=== PATIENT | male | born 1955 | race Two or more races ===

== ENCOUNTER 2020-06-08 17:45 | Inpatient (IN) | payer OTHER ==
--- NOTE | 2020-06-08 20:23 | HP ---
COWS - Scale Resting Pulse: 1= CT 81-100 Sweatin=Flushed/Facial Moisture Restless Observation: 1= Difficult to Sit Still Pupil Size: 0= Normal to Room Light Bone or Joint Aches: 4=Acute Joint/Muscle Pain Runny Nose/ Eye Tearin= None GI Upset > 30mins: 2= Nausea/Diarrhea Tremor Observation: 0= None Yawning Observation: 0= None Anxiety or Irritability: 2=Irritable/Anxious Goose Flesh Skin: 0=Smooth Skin COWS Score: 12 CIWA Score Nausea/Vomitin-Mild Nausea/No Vomiting Muscle Tremors: None Anxiety: 4-Mod. Anxious/Guarded Agitation: 4-Moderately Restless Paroxysmal Sweats: 3 Orientation: 0-Oriented Tacttile Disturbances: 3-Moderate Itch/Numb/Burn (itching) Auditory Disturbances: 0-None Visual Disturbances: 0-None Headache: 3-Moderate (7/10) CIWA-Ar Total Score: 18 - Admission Criteria [facility] Guidelines: Admission for Medically Managed Detox: Requires at least one of the followin. CIWA greater than 12 2. Seizures within the past 24 hours 3. Delirium tremens within the past 24 hours 4. Hallucinations within the past 24 hours 5. Acute intervention needed for co occurring medical disorder 6. Acute intervention needed for co occurring psychiatric disorder 7. Severe withdrawal that cannot be handled at a lower level of care (continued vomiting, continued diarrhea, abnormal vital signs) requiring intravenous medication and/or fluids 8. Admission [facility] Chief Complaint: c/o withdrawal sx's. seeking alcohol and heroin detox. Allergies/Adverse Reactions: Allergies Allergy/AdvReac Type Severity Reaction Status Date / Time No Known Allergies Allergy Verified 06/08/20 22:42 History of Present Illness: here for alcohol heroin detox. client presents today with c/o withdrawal sx's. this is his first admission here. referred by [facility]. he reports daily alcohol intake and heroin abuse q 3 days. last use 2 days agop. client utox is negative for opi. discussed sx's will be managed with clonidine and librium. client agrees to plan and would like to proceed with admission. 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 denies any clean time in the past year. longest clean time 7 years in the 90's. homeless, unemployed, denies legals Exam Limitations: No Limitations - Ebola screening Have you traveled outside of the country in the last 21 days: No Have you had contact with anyone from an Ebola affected area: No Have you been sick,other than usual withdrawal symptoms: No Do you have a fever: No - Review of Systems Constitutional: Chills, Malaise, Night Sweats, Changes in sleep EENT: reports: Dental Problems (missing teeth) Respiratory: reports: Shortness of Breath, Wheezing, Other (hx/o asthma) Cardiac: reports: No Symptoms Reported GI: reports: Nausea, Poor Appetite, Poor Fluid Intake : reports: No Symptoms Reported Musculoskeletal: reports: Back Pain, Joint Pain, Neck Pain Integumentary: reports: Sweating Neuro: reports: Headache Endocrine: reports: No Symptoms Reported Hematology: reports: Anemia Psychiatric: reports: Orientated x3, Anxious Other Systems: Reviewed and Negative Patient History - Patient Medical History Hx Anemia: Yes Hx Asthma: Yes Hx Chronic Obstructive Pulmonary Disease (COPD): No Hx Cancer: No Hx Cardiac Disorders: Yes (wpw) Hx Congestive Heart Failure: No Hx Hypertension: No Hx Hypercholesterolemia: No Hx Pacemaker: No HX Cerebrovascular Accident: No Hx Seizures: No Hx Dementia: No Hx Diabetes: No Hx Gastrointestinal Disorders: No Hx Liver Disease: No Hx Genitourinary Disorders: No Hx Sexually Transmitted Disorders: No Hx Renal Disease (ESRD): No Hx Thyroid Disease: No Hx Human Immunodeficiency Virus (HIV): No Hx Hepatitis C: No Hx Depression: No Hx Suicide Attempt: No Hx Bipolar Disorder: Yes (no meds) Hx Schizophrenia: No Other Medical History: denies - Patient Surgical History Past Surgical History: Yes Hx Appendectomy: Yes Anesthesia Reaction: No - PPD History Previous Implant?: Yes Documented Results: Negative w/o proof Implanted On Prior [facility] Admission?: No PPD to be Administered?: Yes - Smoking Cessation Smoking history: Current every day smoker Have you smoked in the past 12 months: Yes Aproximately how many cigarettes per day: 10 Hx Chewing Tobacco Use: No Initiated information on smoking cessation: Yes 'Breaking Loose' booklet given: 06/08/20 - Substance & Tx. History Hx Alcohol Use: Yes Hx Substance Use: Yes Substance Use Type: Alcohol, Cocaine, Heroin Hx Substance Use Treatment: Yes ([facility]) - Substances abused Heroin Substance route: Inhalation Frequency: 3-6 times per week Amount used: 1 bag Age of first use: 33 Date of last use: 06/05/20 Alcohol Other (specify): vodka/rum Substance route: Oral Frequency: Daily Amount used: 1-2 pint Age of first use: 33 Date of last use: 06/07/20 Cocaine Substance route: Smoking (sniff) Frequency: Daily Amount used: 100 dollars Age of first use: 28 Date of last use: 06/07/20 Admission Physical Exam [facility] - Physical General Appearance: Yes: Moderate Distress, Obese, Sweating, Anxious, Other (solied, unkept) HEENTM: Yes: EOMI, Normocephalic, Normal Voice, BUBBA, Pharynx Normal, Other (missing teeth) Respiratory: Yes: Rhonchi, Wheezing Neck: Yes: No masses,lesions,Nodules, Supple, Trachea in good position Breast: Yes: Breasts Symetrical Cardiology: Yes: Regular Rhythm, S1, S2, Tachycardia Abdominal: Yes: Normal Bowel Sounds, Non Tender, Protuberent Genitourinary: Yes: Within Normal Limits Back: Yes: Normal Inspection Musculoskeletal: Yes: full range of Motion, Gait Steady Extremities: Yes: Normal Range of Motion, Non-Tender, Tremors (felt) Neurological: Yes: Fully Oriented, Alert, Motor Strength 5/5 Integumentary: Yes: Dry, Warm Lymphatic: Yes: Within Normal Limits - Diagnostic (1) Alcohol dependence with withdrawal, uncomplicated Current Visit: Yes Status: Acute (2) Asthma Current Visit: Yes Status: Chronic Qualifiers: Asthma severity: mild Asthma complication type: uncomplicated (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 (4) Substance induced mood disorder Current Visit: Yes Status: Suspected (5) Obesity Current Visit: Yes Status: Chronic (6) Heroin abuse Current Visit: Yes Status: Suspected Comment: reported by patient (7) Cannabis dependence, uncomplicated Current Visit: Yes Status: Acute Cleared for Admission [facility] - Detox or Rehab [facility] Level of Care: Medically Managed Detox Regimen/Protocol: Clonidine/Valium Claeared for Rehab Admission: No Urine Drug Screen - Control Is test valid?: Yes - Results Drug screen NEGATIVE: No Urine drug screen results: THC-Marijuana, RAYMOND-Cocaine Inpatient Rehab Admission - Rehab Decision to Admit Inpatient rehab admission?: No
[2020-06-08] MEDS ORDERED: IBUPROFEN 400 MG TABLET (FP) PO PRN (20:34)
[2020-06-08] MEDS ORDERED: chlordiazePOXIDE HCL 25 MG CAPSULE PO PRN (20:34)
[2020-06-08] MEDS ORDERED: guaiFENesin 200 MG/10 ML 10 ML UNIT-DOSE CUPS PO PRN (20:34)
[2020-06-08] MEDS ORDERED: MENTHOL/PHENOL 1 EACH UD MM PRN (20:34)
[2020-06-08] MEDS ORDERED: MAGNESIUM CITRATE 300 ML BOTTLE PO PRN (20:34)
[2020-06-08] MEDS ORDERED: METHOCARBAMOL 500 MG TABLET PO PRN (20:34)
[2020-06-08] MEDS ORDERED: MAG HYDROX/AL HYDROX/SIMETH 30 ML UNIT-DOSE CUP PO PRN (20:34)
[2020-06-08] MEDS ORDERED: ACETAMINOPHEN 325 MG TABLET (FP) PO PRN ×2 (20:34)
[2020-06-08] MEDS ORDERED: ONDANSETRON *ODT* 4 MG TABLET SL PRN (20:34)
[2020-06-08] MEDS ORDERED: NICOTINE POLACRILEX 2 MG GUM BUC PRN (20:34)
[2020-06-08] MEDS ORDERED: BISMUTH SUBSALICYLATE 524 MG/30 ML UD PO PRN (20:34)
[2020-06-08] MEDS ORDERED: MAGNESIUM HYDROX 2400MG/30ML ORAL SUSPENSION 30 ML CUP PO PRN (20:34)
[2020-06-08] MEDS ORDERED: DICYCLOMINE HCL 10 MG CAPSULE PO PRN (20:34)
[2020-06-08] MEDS ORDERED: P-EPHED 60MG/TRIPROLIDI 2.5MG TABLET PO PRN (20:34)
[2020-06-08 22:38] VITALS: BMI 33.7
[2020-06-08] MEDS ORDERED: ALBUTEROL SO4 0.083% IH SOL 2.5 MG/3 ML VIAL.NEB. NEB PRN (22:51)
[2020-06-08] MEDS ORDERED: cloNIDine HCL 0.1 MG TABLET PO PRN (22:59)
[2020-06-08] MEDS ORDERED: ALBUTEROL SO4 0.083% IH SOL 2.5 MG/3 ML VIAL.NEB. NEB ONE (23:00)
[2020-06-08] MEDS: MELATONIN 5 MG TABLETS PO SCH (23:15)
[2020-06-08] MEDS: THIAMINE HCL 100 MG TABLET (FP) PO SCH (23:15)
[2020-06-08] MEDS: chlordiazePOXIDE HCL 25 MG CAPSULE PO SCH (23:15)
[2020-06-09] MEDS: chlordiazePOXIDE HCL 25 MG CAPSULE PO SCH ×4 (06:59→23:25)
--- NOTE | 2020-06-09 09:49 | PN ---
[facility] CIWA - CIWA Score Nausea/Vomitin-No Nausea/No Vomiting Muscle Tremors: None Anxiety: 0-No Anxiety, at Ease Agitation: 0-Normal Activity Paroxysmal Sweats: No Perspiration Orientation: 1-Uncertain about Date Tacttile Disturbances: 0-None Auditory Disturbances: 0-None Visual Disturbances: 2-Mild Sensitivity Headache: 0-None Present CIWA-Ar Total Score: 3 BHS Progress Note (SOAP) Subjective: Patient examined in the room. Patient feels well other than sensitivity to light. Patient eating well. Patient had no further complaints. Objective: 06/09/20 09:45 General: Patient alert and in no acute distress, WNWD Mental status: Patient judgment intact, no anxiety/depression MSK/Neuro: Patient MS 5/5 Gait: Patient ambulates properly, gait steady Assessment: 06/09/20 09:46 1. Patient detox from alcohol, on librium taper protocol 06/09/20 09:46 Last Vital Signs Temp Pulse Resp BP Pulse Ox 97.1 F L 72 18 108/67 99 06/09/20 08:38 06/09/20 08:38 06/09/20 08:38 06/09/20 08:38 06/09/20 08:38 Current Medications Generic Name Dose Route Start Last Admin Trade Name Freq PRN Reason Stop Dose Admin Acetaminophen 650 mg 06/08/20 20:34 Tylenol - PO Q6H PRN PAIN LEVEL 4 - 6 Acetaminophen 650 mg 06/08/20 20:34 Tylenol - PO Q6H PRN FEVER Al Hydroxide/Mg Hydroxide 30 ml 06/08/20 20:34 Mylanta Oral Suspension - PO Q6H PRN DYSPEPSIA Albuterol Sulfate 1 amp 06/08/20 22:51 Ventolin 0.083% Nebulizer Soln - NEB Q4H PRN SHORT OF BREATH/WHEEZING Bismuth Subsalicylate 524 mg 06/08/20 20:34 Pepto-Bismol - PO Q1H PRN DIARRHEA Chlordiazepoxide HCl 50 mg 06/08/20 23:00 06/09/20 06:59 Librium - PO 06/09/20 23:01 Not Given [id number] DOUGLAS Chlordiazepoxide HCl 25 mg 06/10/20 05:00 Librium - PO 06/10/20 23:01 [id number] DOUGLAS Chlordiazepoxide HCl 25 mg 06/08/20 20:34 Librium - PO 06/10/20 23:59 Q4H PRN WITHDRAWAL(CONT SUBST) Chlordiazepoxide HCl 10 mg 06/11/20 05:00 Librium - PO 06/11/20 23:01 [id number] DOUGLAS Chlordiazepoxide HCl 10 mg 06/12/20 05:00 Librium - PO 06/12/20 17:01 Q12H DOUGLAS Chlordiazepoxide HCl 10 mg 06/11/20 00:00 Librium - PO 06/12/20 00:00 Q4H PRN WITHDRAWAL(CONT SUBST) Chlordiazepoxide HCl 10 mg 06/13/20 05:00 Librium - PO 06/13/20 05:01 ONCE@0500 ONE Clonidine 0.1 mg 06/08/20 22:59 Catapres - PO Q6H PRN opiate withdrawal sx's Dicyclomine HCl 10 mg 06/08/20 20:34 Bentyl - PO 06/14/20 20:36 Q6H PRN Abdominal Cramping Eucalyptus/Menthol/Phenol/Sorbitol 1 each 06/08/20 20:34 Cepastat Lozenge - MM 06/14/20 20:35 Q4H PRN SORE THROAT Guaifenesin 10 ml 06/08/20 20:34 Robitussin - PO Q6H PRN COUGH Hydroxyzine Pamoate 25 mg 06/08/20 20:34 Vistaril - PO 06/14/20 20:36 Q4HWA PRN ANXIETY Ibuprofen 400 mg 06/08/20 20:34 Motrin - PO Q6H PRN PAIN LEVEL 1 - 3 Magnesium Citrate 300 ml 06/08/20 20:34 Citroma - PO Q48H PRN CONSTIPATION Magnesium Hydroxide 30 ml 06/08/20 20:34 Milk Of Magnesia - PO PRN PRN CONSTIPATION Melatonin 5 mg 06/08/20 22:00 06/08/20 23:15 Melatonin PO 5 mg HS DOUGLAS Administration Methocarbamol 500 mg 06/08/20 20:34 Robaxin - PO 06/14/20 20:35 Q6H PRN MUSCLE SPASMS Nicotine 14 mg 06/09/20 10:00 Nicoderm Patch - TD DAILY DOUGLAS Nicotine Polacrilex 2 mg 06/08/20 20:34 Nicorette Gum - BUC Q2H PRN NICOTINE REPLACEMENT RX Ondansetron HCl 4 mg 06/08/20 20:34 Zofran Odt - SL 06/14/20 20:37 Q12H PRN Nausea/Vomiting Multivit/Folic Acid/Iron 1 tab 06/09/20 10:00 Vitamins ([facility]) - PO DAILY DOUGLAS Pseudoephedrine/Triprolidine 1 combo 06/08/20 20:34 Actifed - PO Q6H PRN NASAL CONGESTION Thiamine HCl 100 mg 06/08/20 22:00 06/08/20 23:15 Vitamin B1 - PO 100 mg HS DOUGLAS Administration Discontinued Medications Generic Name Dose Route Start Last Admin Trade Name Freq PRN Reason Stop Dose Admin Albuterol Sulfate 1 amp 06/08/20 23:00 06/08/20 23:23 Ventolin 0.083% Nebulizer Soln - NEB 06/08/20 23:01 Not Given ONCE ONE Tuberculin PPD 5 units 06/08/20 23:00 06/08/20 23:22 Tubersol ([facility] Only) 5ml Vial ID 06/08/20 23:01 5 tu ONCE ONE Administration Plan: 1. Patient continued on librium taper for management of alcohol abuse.
[2020-06-09] MEDS: PRENATAL VITAMINS W/ FOLIC ACID TABLET (FP) PO SCH (10:50)
[2020-06-09] MEDS: NICOTINE 14 MG/24 HOURS TOPICAL PATCH TD SCH (10:51)
--- NOTE | 2020-06-09 10:56 | EKG ---
Test Reason : Blood Pressure : / mmHG Vent. Rate : 082 BPM Atrial Rate : 082 BPM P-R Int : 142 ms QRS Dur : 090 ms QT Int : 370 ms P-R-T Axes : 080 047 045 degrees QTc Int : 432 ms NORMAL SINUS RHYTHM NORMAL ECG NO PREVIOUS ECGS AVAILABLE Confirmed by ELI WALTERS MD ([id number]) on 06/09/2020 10:55:53 AM Referred By: Josh Schmidt Confirmed By:ELI WALTERS MD
--- NOTE | 2020-06-09 11:55 | CONSULT ---
[facility] Psychiatric Consult - Data Date of interview: 06/09/20 Admission source: [facility] Identifying data: Patient is a 64 year old black male, without children, unemployed, homless, and is supported with SSI benefits. This is patient's first admission to detox at [facility]. Patient admitted to for alcohol and cocaine dependence. Substance Abuse History: Smoking Cessation. Smoking history: Current every day smoker. Have you smoked in the past 12 months: Yes. Aproximately how many cigarettes per day: 10. Hx Chewing Tobacco Use: No. Initiated information on smoking cessation: Yes. 'Breaking Loose' booklet given: 06/08/20. - Substance & Tx. History. Hx Alcohol Use: Yes. Hx Substance Use: Yes. Substance Use Type: Alcohol, Cocaine, Heroin. Hx Substance Use Treatment: Yes ([facility]). - Substances abused. Heroin. Substance route: Inhalation. Frequency: 3-6 times per week. Amount used: 1 bag. Age of first use: 33. Date of last use: 06/05/20. Alcohol. Other (specify): vodka/rum. Substance route: Oral. Frequency: Daily. Amount used: 1-2 pint. Age of first use: 33. Date of last use: 06/07/20. Cocaine. Substance route: Smoking (sniff). Frequency: Daily. Amount used: 100 dollars. Age of first use: 28. Date of last use: 06/07/20 Medical History: Anemia, hypertension Psychiatric History: Patient's first psychiatric contact occured in 1976 due to mood instability. He was admitted to [facility], diagnosed with Bipolar disorder and treated with psychotropic medications. Mr. De Guzman reports additional hospitalizations at [facility], [facility], and most recently three months ago at [place] due to depressed mood. Patient unable to recall medications prescribed. States that he is not currently provided with outpatient psychiatric care and is not accepting psychotropic medications. Patient reports history of being prescribed risperdal + Seroquel. No reported history of suicide attempt. At present patient reports poor sleep. Physical/Sexual Abuse/Trauma History: denies. Mental Status Exam - Mental Status Exam Alert and Oriented to: Time, Place, Person Cognitive Function: Good Patient Appearance: Well Groomed Mood: Euthymic Affect: Mood Congruent Patient Behavior: Appropriate, Cooperative Speech Pattern: Appropriate Voice Loudness: Normal Thought Process: Goal Oriented Thought Disorder: Not Present Hallucinations: Denies Suicidal Ideation: Denies Homicidal Ideation: Denies Insight/Judgement: Poor Sleep: Poorly Appetite: Fair Muscle strength/Tone: Normal Gait/Station: Normal Psychiatric Findings - Problem List ([place] 1, 2,3) (1) History of bipolar disorder Current Visit: No Status: Chronic (2) Alcohol dependence with withdrawal, uncomplicated Current Visit: Yes Status: Acute (3) Cannabis dependence, uncomplicated Current Visit: Yes Status: Acute - Initial Treatment Plan Initial Treatment Plan: Psychoeducation provided. Detoxification in progress. Will order Seroquel 50mg HS (patient's request). Benefits and side effects discussed. Verbal consent given.
[2020-06-09 12:32] LABS: HEMATOCRIT 34.9 % (35.4-49); HEMOGLOBIN 11.3 GM/dL (11.7-16.9); MCH 29.2 pg (25.7-33.7); MCHC 32.5 g/dl (32.0-35.9); MEAN CELL VOLUME 89.8 fl (80-96); MEAN PLT VOLUME 7.9 fl (7.5-11.1); PLATELET COUNT 417 K/MM3 (134-434); RBC 3.88 M/mm3 (4.00-5.60); RDW 14.7 % (11.9-15.9); WHITE BLOOD COUNT 7.2 K/mm3 (4.0-10.0)
[2020-06-09 12:47] LABS: BLOOD UREA NITROGEN 19.5 mg/dL (7-18); CALCIUM 8.7 mg/dL (8.5-10.1); POTASSIUM 4.3 mmol/L (3.5-5.1)
[2020-06-09 12:50] LABS: BILIRUBIN,TOTAL 0.5 mg/dL (0.2-1); CREATININE 0.9 mg/dL (0.55-1.3); TOT PROT 6.5 g/dl (6.4-8.2)
[2020-06-09] MEDS: QUEtiapine FUMARATE 50 MG TABLET PO SCH (23:25)
[2020-06-09] MEDS: THIAMINE HCL 100 MG TABLET (FP) PO SCH (23:25)
[2020-06-09] MEDS: MELATONIN 5 MG TABLETS PO SCH (23:25)
[2020-06-10] MEDS: chlordiazePOXIDE HCL 25 MG CAPSULE PO SCH ×4 (06:14→23:02)
--- NOTE | 2020-06-10 10:44 | PN ---
S CIWA - CIWA Score Nausea/Vomitin-No Nausea/No Vomiting Muscle Tremors: 2 Anxiety: 2 Agitation: 0-Normal Activity Paroxysmal Sweats: 2 Orientation: 0-Oriented Tacttile Disturbances: 0-None Auditory Disturbances: 0-None Visual Disturbances: 0-None Headache: 2-Mild CIWA-Ar Total Score: 8 BHS Progress Note (SOAP) Subjective: c/o headache, anxiety, sweats, and shakes. Objective: 06/10/20 10:43 Vital Signs 06/10/20 06/10/20 06:33 09:37 Temperature 98.0 F 97.3 F L Pulse Rate 68 73 Respiratory 18 18 Rate Blood Pressure 145/75 101/60 O2 Sat by Pulse 96 96 Oximetry (%) Laboratory Last Values WBC 7.2 K/mm3 (4.0-10.0) 06/09/20 08:40 RBC 3.88 M/mm3 (4.00-5.60) L 06/09/20 08:40 Hgb 11.3 GM/dL (11.7-16.9) L 06/09/20 08:40 Hct 34.9 % (35.4-49) L 06/09/20 08:40 MCV 89.8 fl (80-96) 06/09/20 08:40 MCH 29.2 pg (25.7-33.7) 06/09/20 08:40 MCHC 32.5 g/dl (32.0-35.9) 06/09/20 08:40 RDW 14.7 % (11.9-15.9) 06/09/20 08:40 Plt Count 417 K/MM3 (134-434) 06/09/20 08:40 MPV 7.9 fl (7.5-11.1) 06/09/20 08:40 Sodium 142 mmol/L (136-145) 06/09/20 08:40 Potassium 4.3 mmol/L (3.5-5.1) 06/09/20 08:40 Chloride 108 mmol/L (98-107) H 06/09/20 08:40 Carbon Dioxide 28 mmol/L (21-32) 06/09/20 08:40 Anion Gap 6 MMOL/L (8-16) L 06/09/20 08:40 BUN 19.5 mg/dL (7-18) H 06/09/20 08:40 Creatinine 0.9 mg/dL (0.55-1.3) 06/09/20 08:40 Est GFR (CKD-EPI)AfAm 104.98 06/09/20 08:40 Est GFR (CKD-EPI)NonAf 90.58 06/09/20 08:40 Random Glucose 111 mg/dL (74-106) H 06/09/20 08:40 Calcium 8.7 mg/dL (8.5-10.1) 06/09/20 08:40 Total Bilirubin 0.5 mg/dL (0.2-1) 06/09/20 08:40 AST 16 U/L (15-37) 06/09/20 08:40 ALT 21 U/L (13-61) 06/09/20 08:40 Alkaline Phosphatase 70 U/L (45-117) 06/09/20 08:40 Total Protein 6.5 g/dl (6.4-8.2) 06/09/20 08:40 Albumin 3.0 g/dl (3.4-5.0) L 06/09/20 08:40 Syphilis Serology Non-reactive (NONREACTIVE) 06/09/20 08:40 Labs noted. Assessment: 06/10/20 10:43 AOX3, in no acute respiratory distress. Full ROM, ambulating in the unit. Withdrawal symptoms. Plan: continue detox.
[2020-06-10] MEDS: PRENATAL VITAMINS W/ FOLIC ACID TABLET (FP) PO SCH (10:51)
[2020-06-10] MEDS: NICOTINE 14 MG/24 HOURS TOPICAL PATCH TD SCH (10:52)
[2020-06-10] MEDS: hydrOXYzine PAMOATE 25 MG CAPSULE (FP) PO PRN ×2 (18:55→23:02)
[2020-06-10] MEDS: THIAMINE HCL 100 MG TABLET (FP) PO SCH (23:02)
[2020-06-10] MEDS: QUEtiapine FUMARATE 50 MG TABLET PO SCH (23:02)
[2020-06-10] MEDS: MELATONIN 5 MG TABLETS PO SCH (23:03)
[2020-06-11] MEDS ORDERED: chlordiazePOXIDE HCL 10 MG CAPSULE PO PRN
[2020-06-11] MEDS: chlordiazePOXIDE HCL 10 MG CAPSULE PO SCH ×4 (06:44→22:23)
[2020-06-11] MEDS: NICOTINE 14 MG/24 HOURS TOPICAL PATCH TD SCH (10:56)
[2020-06-11] MEDS: PRENATAL VITAMINS W/ FOLIC ACID TABLET (FP) PO SCH (10:56)
--- NOTE | 2020-06-11 12:17 | PN ---
S CIWA - CIWA Score Nausea/Vomitin-Mild Nausea/No Vomiting Muscle Tremors: 1-None Visible, but [place] Anxiety: 2 Agitation: 0-Normal Activity Paroxysmal Sweats: No Perspiration Orientation: 0-Oriented Tacttile Disturbances: 0-None Auditory Disturbances: 0-None Visual Disturbances: 2-Mild Sensitivity Headache: 0-None Present CIWA-Ar Total Score: 6 BHS Progress Note (SOAP) Subjective: 64 years old male was admitted on 06/08/20 for alcohol withdrawal sx management treating with librium detox regiment ate breakfast in room tolerated food well seen by psychiatrist christina wilcox discussing aftercare with staff mr concepcion Roca for his alcohol abuse treatment Objective: 06/11/20 12:19 Vital Signs - 24 hr 06/10/20 06/10/20 06/10/20 13:00 16:50 21:08 Temperature 96.5 F L 97.1 F L 97.3 F L Pulse Rate 102 H 67 82 Respiratory 18 18 18 Rate Blood Pressure 117/62 119/68 114/67 O2 Sat by Pulse 96 96 98 Oximetry (%) 06/11/20 06/11/20 06:22 08:40 Temperature 97.7 F 98.3 F Pulse Rate 71 67 Respiratory 18 16 Rate Blood Pressure 123/69 103/56 L O2 Sat by Pulse 96 96 Oximetry (%) Laboratory Tests 06/08/20 06/09/20 06/09/20 10:41 08:40 08:40 WBC 7.2 RBC 3.88 L Hgb 11.3 L Hct 34.9 L MCV 89.8 MCH 29.2 MCHC 32.5 RDW 14.7 Plt Count 417 MPV 7.9 Sodium Potassium Chloride Carbon Dioxide Anion Gap BUN Creatinine Est GFR (CKD-EPI)AfAm Est GFR (CKD-EPI)NonAf Random Glucose Calcium Total Bilirubin AST ALT Alkaline Phosphatase Total Protein Albumin Syphilis Serology Non-reactive COVID-19 (VERONICA) Not detected 06/09/20 08:40 WBC RBC Hgb Hct MCV MCH MCHC RDW Plt Count MPV Sodium 142 Potassium 4.3 Chloride 108 H Carbon Dioxide 28 Anion Gap 6 L BUN 19.5 H Creatinine 0.9 Est GFR (CKD-EPI)AfAm 104.98 Est GFR (CKD-EPI)NonAf 90.58 Random Glucose 111 H Calcium 8.7 Total Bilirubin 0.5 AST 16 ALT 21 Alkaline Phosphatase 70 Total Protein 6.5 Albumin 3.0 L Syphilis Serology COVID-19 (VERONICA) glucose elevation 06/11/20 12:20 encourage weight loss Assessment: 06/11/20 12:20 alcohol withdrawal Plan: librium regiment
[2020-06-11] MEDS: QUEtiapine FUMARATE 50 MG TABLET PO SCH (22:23)
[2020-06-11] MEDS: THIAMINE HCL 100 MG TABLET (FP) PO SCH (22:23)
[2020-06-11] MEDS: MELATONIN 5 MG TABLETS PO SCH (22:23)
[2020-06-12] MEDS: chlordiazePOXIDE HCL 10 MG CAPSULE PO SCH ×2 (06:45→17:53)
--- NOTE | 2020-06-12 10:35 | PN ---
S CIWA - CIWA Score Nausea/Vomitin-No Nausea/No Vomiting Muscle Tremors: 1-None Visible, but [place] Anxiety: 0-No Anxiety, at Ease Agitation: 0-Normal Activity Paroxysmal Sweats: No Perspiration Orientation: 0-Oriented Tacttile Disturbances: 0-None Auditory Disturbances: 0-None Visual Disturbances: 1-Very Mild Sensitivity Headache: 1-Very Mild CIWA-Ar Total Score: 3 BHS Progress Note (SOAP) Subjective: 64 years old male was admitted on 06/08/20 for alcohol withdrawal sx management treating with librium detox regiment ate breakfast in room feels better today encourage mr javier returning to [facility] for alcohol abuse treatment Objective: 06/12/20 10:36 Vital Signs - 24 hr 06/11/20 06/11/20 06/11/20 13:21 17:06 21:17 Temperature 96.9 F L 97.5 F L 97.8 F Pulse Rate 73 85 85 Respiratory 18 16 16 Rate Blood Pressure 101/58 L 122/70 120/71 O2 Sat by Pulse 96 98 Oximetry (%) 06/12/20 06/12/20 06:52 08:47 Temperature 97.3 F L 97.3 F L Pulse Rate 73 76 Respiratory 18 18 Rate Blood Pressure 115/54 L 110/63 O2 Sat by Pulse 98 Oximetry (%) Laboratory Tests 06/08/20 06/09/20 06/09/20 10:41 08:40 08:40 WBC 7.2 RBC 3.88 L Hgb 11.3 L Hct 34.9 L MCV 89.8 MCH 29.2 MCHC 32.5 RDW 14.7 Plt Count 417 MPV 7.9 Sodium Potassium Chloride Carbon Dioxide Anion Gap BUN Creatinine Est GFR (CKD-EPI)AfAm Est GFR (CKD-EPI)NonAf Random Glucose Calcium Total Bilirubin AST ALT Alkaline Phosphatase Total Protein Albumin Syphilis Serology Non-reactive COVID-19 (VERONICA) Not detected 06/09/20 08:40 WBC RBC Hgb Hct MCV MCH MCHC RDW Plt Count MPV Sodium 142 Potassium 4.3 Chloride 108 H Carbon Dioxide 28 Anion Gap 6 L BUN 19.5 H Creatinine 0.9 Est GFR (CKD-EPI)AfAm 104.98 Est GFR (CKD-EPI)NonAf 90.58 Random Glucose 111 H Calcium 8.7 Total Bilirubin 0.5 AST 16 ALT 21 Alkaline Phosphatase 70 Total Protein 6.5 Albumin 3.0 L Syphilis Serology COVID-19 (VERONICA) recommend mr colon follow up repeat random glucose elevation with [place] as well as weight loss and no concentrated sugar Assessment: 06/12/20 10:38 alcohol withdrawal Plan: librium regiment
[2020-06-12] MEDS: NICOTINE 14 MG/24 HOURS TOPICAL PATCH TD SCH (11:01)
[2020-06-12] MEDS: PRENATAL VITAMINS W/ FOLIC ACID TABLET (FP) PO SCH (11:01)
[2020-06-12] MEDS: THIAMINE HCL 100 MG TABLET (FP) PO SCH (22:25)
[2020-06-12] MEDS: QUEtiapine FUMARATE 50 MG TABLET PO SCH (22:25)
[2020-06-12] MEDS: MELATONIN 5 MG TABLETS PO SCH (22:25)
[2020-06-13] MEDS ORDERED: chlordiazePOXIDE HCL 10 MG CAPSULE PO ONE (05:00)
[2020-06-13 09:13] VITALS: BP 104/65; PULSE 87; TEMP 97.1
[2020-06-13] MEDS: NICOTINE 14 MG/24 HOURS TOPICAL PATCH TD SCH (10:18)
[2020-06-13] MEDS: PRENATAL VITAMINS W/ FOLIC ACID TABLET (FP) PO SCH (10:18)
--- NOTE | 2020-06-13 11:11 | DS ---
[facility] Detox Discharge Summary Admission Date: 06/08/20 Discharge Date: 06/13/20 - History Present History: Alcohol Dependence Additional Comments: 64 years old male was admitted on 06/08/20 for alcohol withdrawal sx management treated with librium detox regiment seen by psychiatrist christina wilcox mr javier has completed librium detox regiment and is tolerated well General Appearance: Yes: no Distress, Obese, not Sweating, mild Anxious, HEENTM: Yes: EOMI, Normocephalic, Normal Voice, BUBBA, Pharynx Normal, Other (missing teeth) Respiratory: Yes: Rhonchi, Wheezing due to copd and asthma Neck: Yes: No masses,lesions,Nodules, Supple, Trachea in good position Breast: Yes: Breasts Symetrical Cardiology: Yes: Regular Rhythm, S1, S2, Tachycardia Abdominal: Yes: Normal Bowel Sounds, Non Tender, Protuberent Genitourinary: Yes: Within Normal Limits Back: Yes: Normal Inspection Musculoskeletal: Yes: full range of Motion, Gait Steady Extremities: Yes: Normal Range of Motion, Non-Tender, Tremors (felt) Neurological: Yes: Fully Oriented, Alert, Motor Strength 5/5 Integumentary: Yes: Dry, Warm Lymphatic: Yes: Within Normal Limits Pertinent Past History: time for discharge 34 minutes mr javier is waiting for transportation arranged by the counselor from detox to home - Physical Exam Results Vital Signs: Vital Signs Temperature 97.1 F L 06/13/20 08:42 Pulse Rate 87 06/13/20 08:42 Respiratory Rate 20 06/13/20 08:42 Blood Pressure 104/65 06/13/20 08:42 O2 Sat by Pulse Oximetry (%) 95 06/13/20 05:34 Pertinent Admission Physical Exam Findings: alcohol withdrawal Laboratory Tests 06/08/20 06/09/20 06/09/20 10:41 08:40 08:40 WBC 7.2 RBC 3.88 L Hgb 11.3 L Hct 34.9 L MCV 89.8 MCH 29.2 MCHC 32.5 RDW 14.7 Plt Count 417 MPV 7.9 Sodium Potassium Chloride Carbon Dioxide Anion Gap BUN Creatinine Est GFR (CKD-EPI)AfAm Est GFR (CKD-EPI)NonAf Random Glucose Calcium Total Bilirubin AST ALT Alkaline Phosphatase Total Protein Albumin Syphilis Serology Non-reactive COVID-19 ([facility]) Not detected 06/09/20 08:40 WBC RBC Hgb Hct MCV MCH MCHC RDW Plt Count MPV Sodium 142 Potassium 4.3 Chloride 108 H Carbon Dioxide 28 Anion Gap 6 L BUN 19.5 H Creatinine 0.9 Est GFR (CKD-EPI)AfAm 104.98 Est GFR (CKD-EPI)NonAf 90.58 Random Glucose 111 H Calcium 8.7 Total Bilirubin 0.5 AST 16 ALT 21 Alkaline Phosphatase 70 Total Protein 6.5 Albumin 3.0 L Syphilis Serology COVID-19 ([facility]) lab noted - Treatment Hospital Course: Detox Protocol Followed, Detoxed Safely, Responded well, Disch arged Condition Good, Rehab Referral Accepted Patient has Accepted a Rehab Referral to: [facility] - Medication Discharge Medications: Ambulatory Orders Albuterol Sulfate Inhaler - [Ventolin HFA Inhaler -] 2 inh PO Q4H PRN 30 Days #1 inhaler 06/13/20 - Diagnosis (1) Nicotine dependence Current Visit: Yes Status: Acute Qualifiers: Nicotine product type: cigarettes Substance use status: in withdrawal Qualified Code(s): F17.213 - Nicotine dependence, cigarettes, with withdrawal (2) Alcohol dependence with withdrawal, uncomplicated Current Visit: Yes Status: Acute (3) Asthma Current Visit: Yes Status: Chronic Qualifiers: Asthma severity: mild Asthma persistence: intermittent Asthma complication type: with status asthmaticus Qualified Code(s): J45.22 - Mild intermittent asthma with status asthmaticus (4) Obesity Current Visit: Yes Status: Chronic Qualifiers: Obesity type: due to excess calories Obesity classification: adult class 1 (BMI 30 - 34.9) Serious obesity comorbidity presence: with serious comorbidity (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
== END 2020-06-13 13:05 | disposition home or self-care (01) | DRG 773 ==
LOC: YASAS 17:45 → Y3N 20:54
PROVIDERS: ADMIT Allergy & Immunology; ATTEND Allergy & Immunology
PROC: HZ2ZZZZ Detoxification Services for Substance Abuse Treatment (ICD-10-PCS; principal; 2020-06-08)
DX: F10.230 Alcohol dependence with withdrawal, uncomplicated (principal); F11.20 Opioid dependence, uncomplicated; F14.20 Cocaine dependence, uncomplicated; F12.20 Cannabis dependence, uncomplicated; F17.210 Nicotine dependence, cigarettes, uncomplicated; F19.24 Other psychoactive substance dependence with psychoactive substance-induced mood disorder; F31.9 Bipolar disorder, unspecified; D64.9 Anemia, unspecified; I10 Essential (primary) hypertension; J45.909 Unspecified asthma, uncomplicated; I45.6 Pre-excitation syndrome; R73.9 Hyperglycemia, unspecified; E66.9 Obesity, unspecified; Z68.33 Body mass index [BMI] 33.0-33.9, adult; Z56.0 Unemployment, unspecified; Z59.0 Homelessness
CPT/HCPCS: 36415; 80053; 85027; 86780; 93005; 93010; U0003